=== PATIENT | male | born 1955 | race Caucasian/White ===

== ENCOUNTER 2022-04-22 10:13 | Outpatient (CLI) | payer MEDICARE, OTHER | END 2022-04-22 10:14 | disposition home or self-care (01) | LOC: CSHRAD 10:13 | PROVIDERS: ATTEND Family Medicine | DX: M47.816 Spondylosis without myelopathy or radiculopathy, lumbar region (principal); V80.010A Animal-rider injured by fall from or being thrown from horse in noncollision accident, initial encounter; J90 Pleural effusion, not elsewhere classified | CPT/HCPCS: 71046; 72070; 72100 ==